=== PATIENT | male | born 1990 | race African-American/Black ===

== ENCOUNTER 2019-03-07 06:07 | Emergency (ER) | payer MEDICAID, OTHER ==
[~2019-03-07] VITALS: Ht 175.3 cm; Wt 70.8 kg
--- NOTE | 2019-03-07 06:10 | NUR ---
PT BIBSELF C/O NAUSEA AND VOMITTING SINCE 6PM LAST NIGHT, PT ALSO COMPLAINING OF ABD PAIN. -DIARRHEA. PT AXO4. RESPIRATIONS EVEN AND UNLABORED. PT PUT ON THE PHOTOFLASH POWDER MIXER AND PULSE OX. PT TACHYCARDIC ON THE MONITOR. PENDING EVAL FROM ER .
--- NOTE | 2019-03-07 06:21 | NUR ---
18G RAC IV STARTED, BLOOD DRAWN AND SENT TO LAB.
[2019-03-07] MEDS ORDERED: ONDANSETRON HCL/PF 4 MG/2 ML VIAL ONE (06:27)
[2019-03-07] MEDS ORDERED: IV NS 0.9% 1,000 ML BAG IV ONE (06:30)
[2019-03-07] MEDS ORDERED: ONDANSETRON HCL/PF 4 MG/2 ML VIAL IVP ONE (06:30)
[2019-03-07 06:35] LABS: BASOPHILS % (AUTO) 0.1 % (0.0-2.0); EOSINOPHILS % (AUTO) 3.3 % (0.0-6.0); HEMATOCRIT 48 % (39-51); HEMOGLOBIN 16.4 g/dL (13.5-17.5); LYMPHOCYTES # (AUTO) 0.3 /CMM (0.8-4.8); MEAN CORPUSCULAR HGB CONC 35 g/dl (31.0-36.0); MEAN CORPUSCULAR VOLUME 92 fL (80-96); MONOCYTES # (AUTO) 0.4 /CMM (0.1-1.30); MONOCYTES % (AUTO) 4.3 % (2.0-12.0); NEUTROPHILS # (AUTO) 9.1 /CMM (1.8-8.9); NEUTROPHILS % (AUTO) 89.3 % (43.0-81.0); PLATELET COUNT (AUTO) 215 /CMM (150-450); RED BLOOD CELL COUNT(AUTO) 5.18 MIL/uL (4.5-6.0); WHITE BLOOD COUNT (AUTO) 10.2 K/uL (4.3-11.0)
--- NOTE | 2019-03-07 06:42 | NUR ---
XRAY AT BEDSIDE.
[2019-03-07 06:50] LABS: CALCIUM, SERUM 8.8 mg/dL (8.5-10.1); CARBON DIOXIDE 29 mmol/L (21-32); CHLORIDE 104 mmol/L (98-107); GLUCOSE 106 mg/dL (74-106); SODIUM SERUM 140 mmol/L (136-145); UREA NITROGEN, BLOOD 9 mg/dL (7-18)
[2019-03-07 06:55] LABS: ALANINE AMINOTRANSFERASE 26 U/L (12-78); ALBUMIN 4.2 g/dL (3.4-5.0); ALKALINE PHOSPHATASE 55 U/L (46-116); ASPARTATE AMINOTRANSFERASE 18 U/L (15-37); BILIRUBIN,DIRECT 0.2 mg/dL (0.0-0.2); BILIRUBIN,TOTAL 0.8 mg/dL (0.2-1.0); LIPASE 70 U/L (73-393); TOTAL PROTEIN, SERUM 7.5 g/dL (6.4-8.2)
[2019-03-07] MEDS ORDERED: DILTIAZEM HCL 50 MG IV ONE (07:17)
[2019-03-07] MEDS ORDERED: DILTIAZEM HCL 25 MG IV IV ONE (07:30)
--- NOTE | 2019-03-07 07:37 | NUR ---
REPORT GIVEN TO MOHAN ORTEGA FOR JENNIFER.
[2019-03-07 07:40] VITALS: BP 103/82
--- NOTE | 2019-03-07 07:40 | NUR ---
Patient does not wish to proceed with medical care recommended by . Patient given information related to possible complications, up to and including , which could occur as a result of leaving the hospital at this time. Patient verbalizes understanding of risks involved due to leaving against medical advice. Patient has signed AMA form.
== END 2019-03-07 07:50 | disposition left against medical advice (07) ==
LOC: ER 06:09
DX: I48.91 Unspecified atrial fibrillation (principal); R11.10 Vomiting, unspecified; J45.909 Unspecified asthma, uncomplicated; Z88.6 Allergy status to analgesic agent
CPT/HCPCS: 36415; 71045; 80048; 80076; 83690; 84484; 85025; 93005; 96361; 96374; 96375; 99284; J2405; J3490; J7030